=== PATIENT | female | born 1985 | race Caucasian/White ===

== ENCOUNTER 2018-04-28 06:07 | Emergency (ER) | payer OTHER ==
[~2018-04-28 06:07] MED LIST: ACE3 PO; CEPH-13 PO; IBU800 PO; METR-160 PO
[2018-04-28] MEDS ORDERED: PARO-243 PO (06:18)
[2018-04-28] MEDS ORDERED: [UNRECOGNIZED DRUG - OTHER] (06:19)
[2018-04-28] MEDS ORDERED: LEVO50TA86 PO (06:20)
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
[2018-04-28] MEDS ORDERED: KETOROLAC 60 MG/2 ML VIAL IM ONE (08:35)
[2018-04-28] MEDS ORDERED: DIPHTH/TETANUS/ACEL. PERTUSSIS IM ONLY ONE (08:35)
[2018-04-28 09:30] VITALS: BP 113/78
== END 2018-04-28 09:58 | disposition home or self-care (01) ==
LOC: ER 06:15 → SANE 09:58
DX: R51 Headache (principal); M54.2 Cervicalgia; M25.512 Pain in left shoulder; M25.511 Pain in right shoulder; Y04.8XXA Assault by other bodily force, initial encounter
CPT/HCPCS: 70450; 70486; 72125; 81025; 90471; 90715; 96372; 99283; J1885; L0172